=== PATIENT | male | born 1945 | race African-American/Black ===

== ENCOUNTER 2018-10-23 04:07 | Inpatient (IN) | payer MEDICARE, BC ==
[~2018-10-23] VITALS: Ht 188 cm; Wt 116.1 kg
[~2018-10-23 04:07] MED LIST: ALBU2.5V13 IH; ATOR20TA65 PO; CARV25TA47 PO; CLOP75TA33 PO; EPOETIN ALFA; FERR-63 PO; FURO40TA5 PO; HYDR-4135 PO; HYDR-523 PO; INSU3INS6 SQ; ISOS60TA4 PO; OLOP30.5 NS; PANT40TA4 PO; PROCRIT IV; TAMS0.4C31 PO
[2018-10-23 07:01] LABS: CHLORIDE 103 mEq/L (98-107)
[2018-10-23 07:02] LABS: BASOPHILS % 0.3 % (0.0-2.0); EOSINOPHILS % 0.2 % (0.0-5.0); HEMATOCRIT. 26.9 % (42.0-52.0); HEMOGLOBIN. 8.4 g/dL (14.0-18.0); LYMPHOCYTES % 7.4 % (20.0-50.0); MEAN CORPUSCULAR HEMOGLOBIN 25.5 pg (28.0-32.0); MEAN CORPUSCULAR VOLUME 81.4 fL (80.0-94.0); MEAN PLATELET VOLUME 6.8 fl (7.4-10.4); MONOCYTES % 9.9 % (2.0-8.0); NEUTROPHILS % 82.2 % (40.0-76.0); PLATELET 148 x1000/uL (130-400); RED CELL DISTRIBUTION WIDTH 19.9 % (11.6-14.6)
[2018-10-23 07:03] LABS: INR 1.4; PROTHROMBIN TIME 14.4 sec (9.6-11.0)
[2018-10-23] MEDS ORDERED: SODIUM CHLORIDE 0.9% 1,000 ML IV ONE ×2 (07:30→10:30)
[2018-10-23] MEDS ORDERED: ONDANSETRON HCL 4MG/2ML INJ IV ONE (07:30)
[2018-10-23] MEDS ORDERED: MORPHINE SULFATE 4 MG/ML CPJ (NOT FOR IM USE) IV ONE (07:30)
[2018-10-23] MEDS ORDERED: NA PHOS,M-B/NA PHOS,DI-BA ENEMA 118ML PR ONE (10:15)
[2018-10-23 13:00] VITALS: BP 161/81
[2018-10-23] MEDS ORDERED: ACETAMINOPHEN 325MG TABLET PO PRN (13:00)
[2018-10-23] MEDS ORDERED: OMEPRAZOLE 20MG CAPSULE EXTENDED RELEASE PO SCH (14:00)
[2018-10-23] MEDS ORDERED: MORPHINE SULFATE 4 MG/ML CPJ (NOT FOR IM USE) IV PRN (15:00)
[2018-10-23] MEDS ORDERED: BISACODYL 10MG SUPP PR NR (15:00)
[2018-10-23 16:00] VITALS: BP 171/77
[2018-10-23 16:07] LABS: HEMATOCRIT 27.6 % (42.0-52.0); HEMOGLOBIN 8.7 g/dL (14.0-18.0)
[2018-10-23] MEDS: SODIUM CHLORIDE 0.9% 1,000 ML IV SCH (16:55)
[2018-10-23] MEDS ORDERED: DEXTROSE 50% WATER 50ML SYRINGE IV PRN (17:15)
[2018-10-23 18:00] VITALS: BP 102/56
[2018-10-23 18:03] VITALS: BP 102/55
[2018-10-23] MEDS: INSULIN LISPRO 100 UNITS/ML SUBCUT SCH ×2 (18:10→20:45)
[2018-10-23] MEDS: OMEPRAZOLE 20MG CAPSULE EXTENDED RELEASE PO SCH ×2 (18:28→21:33)
[2018-10-23] MEDS: BLOOD SUGAR DIAGNOSTIC STRIP TEST SCH ×2 (18:28→20:45)
[2018-10-23 18:36] LABS: TOTAL IRON BINDING CAPACITY 114 ug/dL (250-450)
[2018-10-23 19:18] VITALS: BP 102/56
[2018-10-23 20:00] VITALS: BP 105/44
[2018-10-23 20:15] LABS: CLARITY URINE CLEAR (CLEAR); COLOR URINE YELLOW (YELLOW); KETONES URINE NEGATIVE (NEGATIVE); LEUKOCYTE ESTERASE URINE 2+ (NEGATIVE); NITRITE URINE NEGATIVE (NEGATIVE); OCCULT BLOOD URINE NEGATIVE (NEGATIVE); PROTEIN URINE TRACE (NEGATIVE); SPECIFIC GRAVITY URINE 1.013 (1.005-1.030)
[2018-10-23 20:32] LABS: METHADONE URINE SCREEN NEGATIVE (NEGATIVE); OPIATES URINE SCREEN PRESUMTIVE POSITIVE (NEGATIVE)
[2018-10-23 20:33] LABS: *AMPHETAMINES SCREEN URINE NEGATIVE (NEGATIVE); *BARBITURATES SCREEN URINE NEGATIVE (NEGATIVE); *BENZODIAZEPINES SCREEN URINE NEGATIVE (NEGATIVE); *COCAINE SCREEN URINE NEGATIVE (NEGATIVE); CANNABINOID URINE SCREEN NEGATIVE (NEGATIVE); PHENCYCLIDINE URINE SCREEN NEGATIVE (NEGATIVE)
[2018-10-23] MEDS: CARVEDILOL 12.5MG TABLET PO SCH (20:45)
[2018-10-23] MEDS: HYDRALAZINE HCL 50MG TABLET PO SCH (20:45)
[2018-10-23] MEDS: ATORVASTATIN CALCIUM 20MG TABLET PO SCH (21:33)
[2018-10-24] VITALS (16 sets, daily range): BP systolic 95–176; BP diastolic 46–82
[2018-10-24 00:46] LABS: HEMATOCRIT 25.2 % (42.0-52.0)
[2018-10-24] MEDS: HYDROCODONE/ACETAMINOPHEN 5/325MG TABLET PO PRN (03:36)
[2018-10-24] MEDS: SODIUM CHLORIDE 0.9% 1,000 ML IV SCH ×2 (06:17→21:44)
[2018-10-24] MEDS: BLOOD SUGAR DIAGNOSTIC STRIP TEST SCH ×4 (06:23→21:29)
[2018-10-24] MEDS ORDERED: LIDOCAINE HCL 1% 20ML VIAL (Pyxis) INJ ONE (07:37)
[2018-10-24] MEDS ORDERED: SODIUM BICARBONATE 4% (2.4MEQ) 5ML VIAL IV ONE (07:37)
[2018-10-24 07:42] LABS: EOSINOPHILS % 0.2 % (0.0-5.0); HEMATOCRIT. 24.4 % (42.0-52.0); HEMOGLOBIN. 7.5 g/dL (14.0-18.0); LYMPHOCYTES % 7.4 % (20.0-50.0); MEAN CORPUSCULAR HEMOGLOBIN 25.4 pg (28.0-32.0); MEAN CORPUSCULAR VOLUME 82.5 fL (80.0-94.0); MEAN PLATELET VOLUME 6.8 fl (7.4-10.4); MONOCYTES % 9.9 % (2.0-8.0); NEUTROPHILS % 82.5 % (40.0-76.0); PLATELET 122 x1000/uL (130-400); RED BLOOD CELL COUNT 2.95 mill/uL (4.7-6.1); RED CELL DISTRIBUTION WIDTH 19.6 % (11.6-14.6)
[2018-10-24 07:45] LABS: INR 1.5; PROTHROMBIN TIME 14.9 sec (9.6-11.0)
[2018-10-24 08:02] LABS: PHOSPHORUS 6.5 mg/dL (2.5-4.9)
[2018-10-24] MEDS: INSULIN LISPRO 100 UNITS/ML SUBCUT SCH ×4 (08:10→21:43)
[2018-10-24] MEDS ORDERED: CEFAZOLIN 1000MG PREMIX 50 ML IV ONE ×2 (08:14→08:15)
[2018-10-24] MEDS ORDERED: FENTANYL CITRATE/PF 50MCG/ML 2ML VIAL ONE (08:14)
[2018-10-24] MEDS ORDERED: FENTANYL CITRATE/PF 50MCG/ML 2ML VIAL IV ONE (08:25)
[2018-10-24] MEDS ORDERED: BISACODYL 10MG SUPP PR PRN (09:00)
[2018-10-24] MEDS ORDERED: FAMOTIDINE 20MG/2ML VIAL IV SCH (09:00)
[2018-10-24] MEDS: TAMSULOSIN HCL 0.4MG SR CAPSULE PO SCH (09:31)
[2018-10-24] MEDS: CARVEDILOL 12.5MG TABLET PO SCH (09:32)
[2018-10-24] MEDS: HYDRALAZINE HCL 50MG TABLET PO SCH (09:32)
[2018-10-24] MEDS: OMEPRAZOLE 20MG CAPSULE EXTENDED RELEASE PO SCH ×2 (09:32→21:42)
[2018-10-24] MEDS: DOCUSATE SODIUM 250MG CAPSULE PO SCH (09:34)
[2018-10-24] MEDS ORDERED: CEFAZOLIN SODIUM 1000MG/VIAL IM ONE (16:15)
[2018-10-24] MEDS ORDERED: CEFAZOLIN 1000MG PREMIX 50 ML IV NR ×2 (16:15→17:30)
[2018-10-24 20:03] LABS: HEMOGLOBIN 8.3 g/dL (14.0-18.0)
[2018-10-24] MEDS: CARVEDILOL 3.125 MG TABLET PO SCH (20:19)
[2018-10-24 20:34] LABS: HEPATITIS B SURFACE AB 218.7 mIU/mL
[2018-10-24 20:45] LABS: HEPATITIS B SURFACE ANTIGEN NEGATIVE
[2018-10-24] MEDS: ATORVASTATIN CALCIUM 20MG TABLET PO SCH (21:42)
[2018-10-24] MEDS: EPOETIN ALFA 10000UNITS/ML VIAL SUBCUT SCH (21:43)
[2018-10-24] MEDS: MORPHINE SULFATE 2 MG/ML CPJ (NOT FOR IM USE) IV PRN (23:58)
[2018-10-25] VITALS: BP 110/56
[2018-10-25 00:01] LABS: HEMATOCRIT 24.4 % (42.0-52.0); HEMOGLOBIN 7.7 g/dL (14.0-18.0)
[2018-10-25] MEDS: HYDROCODONE/ACETAMINOPHEN 5/325MG TABLET PO PRN ×2 (03:40→09:34)
[2018-10-25 04:00] VITALS: BP 95/51
[2018-10-25] MEDS: BLOOD SUGAR DIAGNOSTIC STRIP TEST SCH ×4 (05:43→21:10)
[2018-10-25 07:27] LABS: BASOPHILS % 0.1 % (0.0-2.0); EOSINOPHILS % 0.4 % (0.0-5.0); HEMATOCRIT. 24.4 % (42.0-52.0); HEMOGLOBIN. 7.6 g/dL (14.0-18.0); LYMPHOCYTES % 9.1 % (20.0-50.0); MEAN CORPUSCULAR HEMOGLOBIN 25.6 pg (28.0-32.0); MEAN CORPUSCULAR VOLUME 82.2 fL (80.0-94.0); MEAN PLATELET VOLUME 7.1 fl (7.4-10.4); MONOCYTES % 12.2 % (2.0-8.0); NEUTROPHILS % 78.2 % (40.0-76.0); PLATELET 113 x1000/uL (130-400); RED BLOOD CELL COUNT 2.96 mill/uL (4.7-6.1); RED CELL DISTRIBUTION WIDTH 19.8 % (11.6-14.6)
[2018-10-25] MEDS: INSULIN LISPRO 100 UNITS/ML SUBCUT SCH ×4 (07:45→21:00)
[2018-10-25 08:00] VITALS: BP 103/60
[2018-10-25 08:00] LABS: PHOSPHORUS 4.8 mg/dL (2.5-4.9)
[2018-10-25 08:21] LABS: *CREATININE RANDOM URINE 64.4 mg/dL (Not Estab.); MICROALBUMIN RANDOM URINE 15.9 ug/mL (Not Estab.)
[2018-10-25] MEDS: CARVEDILOL 3.125 MG TABLET PO SCH (09:27)
[2018-10-25] MEDS: OMEPRAZOLE 20MG CAPSULE EXTENDED RELEASE PO SCH ×2 (09:27→21:09)
[2018-10-25] MEDS: DOCUSATE SODIUM 250MG CAPSULE PO SCH (09:28)
[2018-10-25] MEDS: TAMSULOSIN HCL 0.4MG SR CAPSULE PO SCH (09:28)
[2018-10-25 12:00] VITALS: BP 109/57
[2018-10-25] MEDS: DOCUSATE SODIUM SUGAR FREE 100MG/10ML UDC NG SCH ×2 (12:00→21:09)
[2018-10-25] MEDS ORDERED: BISACODYL 10MG SUPP PR SCH (14:00)
[2018-10-25] MEDS: ONDANSETRON HCL 4MG/2ML INJ IV PRN ×2 (15:51→21:39)
[2018-10-25 16:00] VITALS: BP 133/66
[2018-10-25] MEDS: SODIUM CHLORIDE 0.9% 1,000 ML IV SCH (18:40)
[2018-10-25] MEDS ORDERED: NA PHOS,M-B/NA PHOS,DI-BA ENEMA 118ML PR PRN (19:45)
[2018-10-25 20:00] VITALS: BP 126/93
[2018-10-25] MEDS: MORPHINE SULFATE 2 MG/ML CPJ (NOT FOR IM USE) IV PRN (20:01)
[2018-10-25] MEDS: ATORVASTATIN CALCIUM 20MG TABLET PO SCH (21:09)
[2018-10-26] VITALS: BP 93/62
[2018-10-26] MEDS: HYDROCODONE/ACETAMINOPHEN 5/325MG TABLET PO PRN (01:58)
[2018-10-26 04:00] VITALS: BP 95/68
[2018-10-26] MEDS: BLOOD SUGAR DIAGNOSTIC STRIP TEST SCH (06:12)
[2018-10-26] MEDS: INSULIN LISPRO 100 UNITS/ML SUBCUT SCH (06:12)
[2018-10-26 06:35] LABS: HEMATOCRIT. 24.5 % (42.0-52.0); HEMOGLOBIN. 7.6 g/dL (14.0-18.0); MEAN CORPUSCULAR HEMOGLOBIN 25.5 pg (28.0-32.0); MEAN PLATELET VOLUME 7.4 fl (7.4-10.4); PLATELET 98 x1000/uL (130-400); RED BLOOD CELL COUNT 2.99 mill/uL (4.7-6.1); RED CELL DISTRIBUTION WIDTH 19.7 % (11.6-14.6)
[2018-10-26 08:00] VITALS: BP 96/53
[2018-10-26] MEDS: ONDANSETRON HCL 4MG/2ML INJ IV PRN (08:42)
[2018-10-26] MEDS: MORPHINE SULFATE 2 MG/ML CPJ (NOT FOR IM USE) IV PRN (08:42)
[2018-10-26] MEDS: TAMSULOSIN HCL 0.4MG SR CAPSULE PO SCH (08:43)
[2018-10-26] MEDS: OMEPRAZOLE 20MG CAPSULE EXTENDED RELEASE PO SCH ×2 (08:44→21:16)
[2018-10-26] MEDS: DOCUSATE SODIUM SUGAR FREE 100MG/10ML UDC NG SCH ×2 (08:47→17:23)
[2018-10-26] MEDS ORDERED: BISACODYL 10MG SUPP PR SCH (09:00)
[2018-10-26 12:00] VITALS: BP 108/60
[2018-10-26 16:00] VITALS: BP_SYST 104; BP_SYST 112; BP_DIAS 54; BP_DIAS 57
[2018-10-26] MEDS: MEGESTROL ACETATE 400 MG/10 ML UDC PO SCH (18:47)
[2018-10-26 20:00] VITALS: BP 110/54
[2018-10-26 20:19] LABS: PLATELET ESTIMATE DECREASED
[2018-10-26] MEDS ORDERED: POLYETHYLENE GLYCOL 3350 (17GM) 1 DOSE PACK PO SCH (21:00)
[2018-10-26] MEDS: ATORVASTATIN CALCIUM 20MG TABLET PO SCH (21:16)
[2018-10-26] MEDS: EPOETIN ALFA 10000UNITS/ML VIAL SUBCUT SCH (21:31)
[2018-10-27 00:14] VITALS: BP 103/57
[2018-10-27 04:20] VITALS: BP 100/51
[2018-10-27 08:00] VITALS: BP 94/52
[2018-10-27] MEDS: DOCUSATE SODIUM SUGAR FREE 100MG/10ML UDC NG SCH ×2 (08:43→16:37)
[2018-10-27] MEDS: MEGESTROL ACETATE 400 MG/10 ML UDC PO SCH (08:44)
[2018-10-27] MEDS: OMEPRAZOLE 20MG CAPSULE EXTENDED RELEASE PO SCH ×2 (08:44→21:35)
[2018-10-27] MEDS: TAMSULOSIN HCL 0.4MG SR CAPSULE PO SCH (08:46)
[2018-10-27 09:30] LABS: BASOPHILS % 0.2 % (0.0-2.0); HEMATOCRIT. 24.4 % (42.0-52.0); HEMOGLOBIN. 7.7 g/dL (14.0-18.0); LYMPHOCYTES % 7.9 % (20.0-50.0); MEAN CORPUSCULAR HEMOGLOBIN 26.1 pg (28.0-32.0); MEAN CORPUSCULAR VOLUME 82.3 fL (80.0-94.0); MEAN PLATELET VOLUME 7.6 fl (7.4-10.4); MONOCYTES % 9.6 % (2.0-8.0); NEUTROPHILS % 82.3 % (40.0-76.0); PLATELET 99 x1000/uL (130-400); RED BLOOD CELL COUNT 2.96 mill/uL (4.7-6.1); RED CELL DISTRIBUTION WIDTH 19.8 % (11.6-14.6)
[2018-10-27 12:00] VITALS: BP 95/51
[2018-10-27 16:00] VITALS: BP 100/50
[2018-10-27 20:00] VITALS: BP 101/51
[2018-10-27] MEDS: ATORVASTATIN CALCIUM 20MG TABLET PO SCH (21:35)
[2018-10-28] VITALS: BP 120/54
[2018-10-28 04:00] VITALS: BP 95/56
[2018-10-28 06:25] LABS: BASOPHILS % 0.1 % (0.0-2.0); EOSINOPHILS % 0.1 % (0.0-5.0); HEMATOCRIT. 23.7 % (42.0-52.0); HEMOGLOBIN. 7.5 g/dL (14.0-18.0); LYMPHOCYTES % 7.5 % (20.0-50.0); MEAN CORPUSCULAR HEMOGLOBIN 25.9 pg (28.0-32.0); MEAN CORPUSCULAR VOLUME 82.4 fL (80.0-94.0); MEAN PLATELET VOLUME 7.5 fl (7.4-10.4); MONOCYTES % 10.6 % (2.0-8.0); NEUTROPHILS % 81.7 % (40.0-76.0); PLATELET 95 x1000/uL (130-400); RED BLOOD CELL COUNT 2.88 mill/uL (4.7-6.1); RED CELL DISTRIBUTION WIDTH 19.9 % (11.6-14.6)
[2018-10-28 07:19] LABS: PHOSPHORUS 5.8 mg/dL (2.5-4.9)
[2018-10-28 08:00] VITALS: BP 92/47
[2018-10-28] MEDS: MEGESTROL ACETATE 400 MG/10 ML UDC PO SCH (08:10)
[2018-10-28] MEDS: OMEPRAZOLE 20MG CAPSULE EXTENDED RELEASE PO SCH ×2 (08:11→22:42)
[2018-10-28] MEDS: DOCUSATE SODIUM SUGAR FREE 100MG/10ML UDC NG SCH ×2 (08:11→17:00)
[2018-10-28] MEDS: TAMSULOSIN HCL 0.4MG SR CAPSULE PO SCH (08:11)
[2018-10-28] MEDS: MORPHINE SULFATE 2 MG/ML CPJ (NOT FOR IM USE) IV PRN (11:21)
[2018-10-28 12:00] VITALS: BP 90/50
[2018-10-28 16:00] VITALS: BP 116/68
[2018-10-28] MEDS: ONDANSETRON HCL 4MG/2ML INJ IV PRN (18:44)
[2018-10-28 20:00] VITALS: BP 112/62
[2018-10-28] MEDS ORDERED: IPRATROPIUM/ALBUTEROL 0.5-3(2.5)MG/3ML NEB HHN PRN (20:45)
[2018-10-28] MEDS: TRAMADOL 50MG TABLET PO PRN (22:36)
[2018-10-28] MEDS: ATORVASTATIN CALCIUM 20MG TABLET PO SCH (22:41)
[2018-10-29 00:45] VITALS: BP 100/47
[2018-10-29] MEDS: SODIUM CHLORIDE 0.9% 1,000 ML IV SCH ×3 (01:11→16:03)
[2018-10-29] MEDS ORDERED: MORPHINE SULFATE 2 MG/ML CPJ (NOT FOR IM USE) IV PRN ×2 (02:00→18:00)
[2018-10-29 04:00] VITALS: BP 98/45
[2018-10-29 07:36] LABS: EOSINOPHILS % 0.1 % (0.0-5.0); HEMOGLOBIN. 7.2 g/dL (14.0-18.0); LYMPHOCYTES % 7.9 % (20.0-50.0); MEAN CORPUSCULAR HEMOGLOBIN 26.1 pg (28.0-32.0); MEAN PLATELET VOLUME 7.8 fl (7.4-10.4); MONOCYTES % 10.9 % (2.0-8.0); NEUTROPHILS % 81.1 % (40.0-76.0); PLATELET 91 x1000/uL (130-400); RED BLOOD CELL COUNT 2.77 mill/uL (4.7-6.1); RED CELL DISTRIBUTION WIDTH 19.6 % (11.6-14.6)
[2018-10-29 07:48] LABS: CHLORIDE 108 mEq/L (98-107)
[2018-10-29 07:55] LABS: AMYLASE 31 IU/L (25-115)
[2018-10-29 07:58] LABS: PHOSPHORUS 4.3 mg/dL (2.5-4.9)
[2018-10-29 08:00] VITALS: BP 119/75
[2018-10-29] MEDS: DOCUSATE SODIUM SUGAR FREE 100MG/10ML UDC NG SCH ×2 (08:35→17:00)
[2018-10-29] MEDS: ONDANSETRON HCL 4MG/2ML INJ IV PRN ×2 (08:35→13:33)
[2018-10-29] MEDS: TAMSULOSIN HCL 0.4MG SR CAPSULE PO SCH (08:36)
[2018-10-29] MEDS: MEGESTROL ACETATE 400 MG/10 ML UDC PO SCH (08:36)
[2018-10-29] MEDS: OMEPRAZOLE 20MG CAPSULE EXTENDED RELEASE PO SCH ×2 (08:36→20:57)
[2018-10-29 12:00] VITALS: BP 100/70
[2018-10-29] MEDS ORDERED: PIPERACILLIN/TAZ 3.375G PREMIX 50 ML IV SCH (12:45)
[2018-10-29] MEDS ORDERED: IPRATROPIUM/ALBUTEROL 0.5-3(2.5)MG/3ML NEB HHN PRN (13:15)
[2018-10-29 16:00] VITALS: BP 95/55
[2018-10-29] MEDS: PIPERACILLIN/TAZ 2.25G PREMIX 50 ML IV SCH ×2 (16:02→22:11)
[2018-10-29 20:00] VITALS: BP 110/50
[2018-10-29] MEDS: TRAMADOL 50MG TABLET PO PRN (20:28)
[2018-10-29] MEDS: ATORVASTATIN CALCIUM 20MG TABLET PO SCH (20:57)
[2018-10-29] MEDS: EPOETIN ALFA 10000UNITS/ML VIAL SUBCUT SCH (20:57)
[2018-10-30] VITALS: BP 112/59
[2018-10-30] MEDS: SODIUM CHLORIDE 0.9% 1,000 ML IV SCH ×2 (01:23→22:02)
[2018-10-30 04:00] VITALS: BP 99/55
[2018-10-30] MEDS: PIPERACILLIN/TAZ 2.25G PREMIX 50 ML IV SCH ×3 (06:11→21:49)
[2018-10-30 06:22] LABS: CHLORIDE 106 mEq/L (98-107)
[2018-10-30 06:23] LABS: HEMATOCRIT. 22.9 % (42.0-52.0); HEMOGLOBIN. 7.1 g/dL (14.0-18.0); MEAN CORPUSCULAR HEMOGLOBIN 26.1 pg (28.0-32.0); MEAN CORPUSCULAR VOLUME 83.7 fL (80.0-94.0); MEAN PLATELET VOLUME 8.1 fl (7.4-10.4); PLATELET 86 x1000/uL (130-400); RED BLOOD CELL COUNT 2.74 mill/uL (4.7-6.1)
[2018-10-30 06:34] LABS: PHOSPHORUS 5.1 mg/dL (2.5-4.9)
[2018-10-30] MEDS: OMEPRAZOLE 20MG CAPSULE EXTENDED RELEASE PO SCH ×2 (07:40→21:49)
[2018-10-30 08:00] VITALS: BP 101/52
[2018-10-30] MEDS: DOCUSATE SODIUM SUGAR FREE 100MG/10ML UDC NG SCH ×2 (09:00→17:00)
[2018-10-30] MEDS: MEGESTROL ACETATE 400 MG/10 ML UDC PO SCH (09:00)
[2018-10-30] MEDS: TAMSULOSIN HCL 0.4MG SR CAPSULE PO SCH (09:00)
[2018-10-30 10:55] LABS: PLATELET ESTIMATE DECREASED
[2018-10-30 12:00] VITALS: BP 91/56
[2018-10-30] MEDS ORDERED: MORPHINE SULFATE 2 MG/ML CPJ (NOT FOR IM USE) IV SCH (15:30)
[2018-10-30 18:52] LABS: AMYLASE 29 IU/L (25-115)
[2018-10-30 20:00] VITALS: BP 94/42
[2018-10-30] MEDS: CARVEDILOL 3.125 MG TABLET PO SCH (21:00)
[2018-10-30] MEDS: ATORVASTATIN CALCIUM 20MG TABLET PO SCH (21:49)
[2018-10-31] VITALS (61 sets, daily range): BP systolic 72–149; BP diastolic 26–96
[2018-10-31] MEDS: PIPERACILLIN/TAZ 2.25G PREMIX 50 ML IV SCH ×3 (05:17→23:02)
[2018-10-31] MEDS ORDERED: SODIUM BICARBONATE 7.5% 0.9 MEQ/ML 50ML SYR IV ONE (07:33)
[2018-10-31] MEDS ORDERED: CALCIUM CHLORIDE 1GM/10ML SYR IV ONE (07:33)
[2018-10-31] MEDS ORDERED: EPINEPHRINE 0.1MG/ML (1:10,000) 10ML SYR ONE (07:33)
[2018-10-31 07:55] LABS: HEMATOCRIT. 24.2 % (42.0-52.0); HEMOGLOBIN. 7.4 g/dL (14.0-18.0); MEAN CORPUSCULAR HEMOGLOBIN 25.5 pg (28.0-32.0); MEAN CORPUSCULAR VOLUME 83.4 fL (80.0-94.0); MEAN PLATELET VOLUME 7.8 fl (7.4-10.4); PLATELET 82 x1000/uL (130-400); RED CELL DISTRIBUTION WIDTH 19.5 % (11.6-14.6)
[2018-10-31 08:04] LABS: CHLORIDE 107 mEq/L (98-107)
[2018-10-31 08:16] LABS: PHOSPHORUS 4.6 mg/dL (2.5-4.9)
[2018-10-31] MEDS: PROPOFOL 10MG/ML 100ML 100 ML IV PRN ×3 (08:36→21:59)
[2018-10-31 08:56] LABS: BG BASE EXCESS -4.8 mmol/L (-2.0-2.0); BG CARBOXYHEMOGLOBIN 0.9 % (0.5-1.5); BG DEOXYHEMOGLOBIN 1.1 % (0.0-5.0); BG FRACTION INSPIRED OXYGEN 100; BG HCO3 ACT 21.2 mmol/L (22.0-26.0); BG METHEMOGLOBIN 0.2 % (0.0-1.5); BG OXYGEN SATURATION 98.9 % (92.0-98.5); BG OXYHEMOGLOBIN 97.8 % (94.0-97.0); BG PCO2 43.9 mmHg (35.0-45.0); BG PH 7.302 (7.350-7.450); BG PO2 156.2 mmHg (75.0-100.0); BG SAMPLE SITE RIGHT RADIAL; BG TIDAL VOLUME(mL) 500 mL; BG TOTAL HEMOGLOBIN 7.4 g/dL (12.0-18.0); BG VENT MODE VENT - A/C; BG VENT RATE 16 set
[2018-10-31] MEDS: MEGESTROL ACETATE 400 MG/10 ML UDC PO SCH (09:00)
[2018-10-31] MEDS: CARVEDILOL 3.125 MG TABLET PO SCH (09:00)
[2018-10-31] MEDS: DOCUSATE SODIUM SUGAR FREE 100MG/10ML UDC NG SCH ×2 (09:00→16:18)
[2018-10-31] MEDS ORDERED: IPRATROPIUM/ALBUTEROL 0.5-3(2.5)MG/3ML NEB HHN PRN (09:30)
[2018-10-31] MEDS ORDERED: NOREPINEPHRINE 16MG in DEXT 5% WATER 250ML (QUADRUPLE CONC) IV PRN (10:00)
[2018-10-31] MEDS ORDERED: NOREPINEPHRINE 32 MG in DEXT 5% WATER 468 ML IV PRN (10:00)
[2018-10-31 10:09] LABS: PLATELET ESTIMATE DECREASED
[2018-10-31] MEDS: TAMSULOSIN HCL 0.4MG SR CAPSULE PO SCH (10:42)
[2018-10-31] MEDS: FAMOTIDINE 20MG/2ML VIAL IV SCH (10:51)
[2018-10-31 11:37] LABS: INR 1.6
[2018-10-31] MEDS: IPRATROPIUM/ALBUTEROL 0.5-3(2.5)MG/3ML NEB HHN SCH ×3 (12:02→20:15)
[2018-10-31] MEDS: SODIUM CHLORIDE 0.9% 1,000 ML IV SCH (18:19)
[2018-10-31] MEDS: ATORVASTATIN CALCIUM 20MG TABLET PO SCH (21:00)
[2018-11-01] VITALS (81 sets, daily range): BP systolic 35–156; BP diastolic 22–66
[2018-11-01] MEDS: IPRATROPIUM/ALBUTEROL 0.5-3(2.5)MG/3ML NEB HHN SCH ×3 (00:27→08:57)
[2018-11-01] MEDS: PROPOFOL 10MG/ML 100ML 100 ML IV PRN ×4 (02:20→17:42)
[2018-11-01 05:18] LABS: HEMATOCRIT. 24.2 % (42.0-52.0); HEMOGLOBIN. 7.5 g/dL (14.0-18.0); MEAN CORPUSCULAR HEMOGLOBIN 25.8 pg (28.0-32.0); MEAN CORPUSCULAR VOLUME 83.1 fL (80.0-94.0); MEAN PLATELET VOLUME 8.2 fl (7.4-10.4); PLATELET 101 x1000/uL (130-400); RED BLOOD CELL COUNT 2.91 mill/uL (4.7-6.1); RED CELL DISTRIBUTION WIDTH 19.3 % (11.6-14.6)
[2018-11-01 05:25] LABS: CHLORIDE 105 mEq/L (98-107)
[2018-11-01 05:34] LABS: PHOSPHORUS 4.8 mg/dL (2.5-4.9)
[2018-11-01] MEDS: PIPERACILLIN/TAZ 2.25G PREMIX 50 ML IV SCH ×3 (05:37→21:00)
[2018-11-01 07:42] LABS: BG BASE EXCESS -1.8 mmol/L (-2.0-2.0); BG CARBOXYHEMOGLOBIN 0.4 % (0.5-1.5); BG DEOXYHEMOGLOBIN 4.3 % (0.0-5.0); BG HCO3 ACT 21.9 mmol/L (22.0-26.0); BG METHEMOGLOBIN 0.2 % (0.0-1.5); BG OXYGEN SATURATION 95.7 % (92.0-98.5); BG OXYHEMOGLOBIN 95.1 % (94.0-97.0); BG PCO2 32.4 mmHg (35.0-45.0); BG PH 7.448 (7.350-7.450); BG PO2 77.3 mmHg (75.0-100.0); BG SAMPLE SITE RIGHT BRACHIAL; BG TIDAL VOLUME(mL) 500 mL; BG TOTAL HEMOGLOBIN 7.2 g/dL (12.0-18.0); BG VENT MODE VENT - A/C; BG VENT RATE 16 set
[2018-11-01] MEDS: SODIUM CHLORIDE 0.9% 1,000 ML IV SCH (08:20)
[2018-11-01] MEDS: MEGESTROL ACETATE 400 MG/10 ML UDC PO SCH (08:22)
[2018-11-01] MEDS: DOCUSATE SODIUM SUGAR FREE 100MG/10ML UDC NG SCH ×2 (08:23→17:18)
[2018-11-01] MEDS: FAMOTIDINE 20MG/2ML VIAL IV SCH (08:25)
[2018-11-01] MEDS: TAMSULOSIN HCL 0.4MG SR CAPSULE PO SCH (08:25)
[2018-11-01 08:28] LABS: PLATELET ESTIMATE SLIGHTLY DECREASED
[2018-11-01] MEDS ORDERED: NOREPINEPHRINE 16 MG in DEXT 5% WATER 234 ML IV PRN (10:30)
[2018-11-01] MEDS: IPRATROPIUM BROMIDE (0.02%) 0.5MG/2.5ML NEB HHN SCH ×2 (13:08→20:40)
[2018-11-01] MEDS ORDERED: HEPARIN SODIUM 1,000 UNIT/1ML VIAL IV ONE (14:00)
[2018-11-01] MEDS: PHENYLEPHRINE 40 MG in DEXT 5% WATER 246 ML IV PRN ×2 (14:20→19:57)
[2018-11-01] MEDS: ATORVASTATIN CALCIUM 20MG TABLET PO SCH (20:59)
[2018-11-02] VITALS (104 sets, daily range): BP systolic 60–128; BP diastolic 20–70
[2018-11-02] MEDS: PROPOFOL 10MG/ML 100ML 100 ML IV PRN ×4 (00:17→21:36)
[2018-11-02] MEDS: PHENYLEPHRINE 40 MG in DEXT 5% WATER 246 ML IV PRN ×6 (00:59→21:37)
[2018-11-02] MEDS: IPRATROPIUM BROMIDE (0.02%) 0.5MG/2.5ML NEB HHN SCH ×4 (02:06→20:01)
[2018-11-02 05:08] LABS: HEMATOCRIT. 22.9 % (42.0-52.0); HEMOGLOBIN. 7.3 g/dL (14.0-18.0); MEAN CORPUSCULAR HEMOGLOBIN 25.8 pg (28.0-32.0); MEAN CORPUSCULAR VOLUME 81.4 fL (80.0-94.0); MEAN PLATELET VOLUME 7.8 fl (7.4-10.4); PLATELET 85 x1000/uL (130-400); RED BLOOD CELL COUNT 2.82 mill/uL (4.7-6.1); RED CELL DISTRIBUTION WIDTH 19.5 % (11.6-14.6)
[2018-11-02 05:21] LABS: PHOSPHORUS 4.1 mg/dL (2.5-4.9)
[2018-11-02] MEDS: PIPERACILLIN/TAZ 2.25G PREMIX 50 ML IV SCH ×3 (05:39→21:36)
[2018-11-02 07:38] LABS: PLATELET ESTIMATE DECREASED
[2018-11-02] MEDS: FAMOTIDINE 20MG/2ML VIAL IV SCH (09:13)
[2018-11-02] MEDS: DOCUSATE SODIUM SUGAR FREE 100MG/10ML UDC NG SCH ×2 (09:13→17:39)
[2018-11-02] MEDS: MEGESTROL ACETATE 400 MG/10 ML UDC PO SCH (09:13)
[2018-11-02] MEDS: TAMSULOSIN HCL 0.4MG SR CAPSULE PO SCH (09:14)
[2018-11-02 09:39] LABS: BG BASE EXCESS -2.8 mmol/L (-2.0-2.0); BG DEOXYHEMOGLOBIN 1.4 % (0.0-5.0); BG FRACTION INSPIRED OXYGEN 50; BG HCO3 ACT 20.8 mmol/L (22.0-26.0); BG METHEMOGLOBIN 0.3 % (0.0-1.5); BG OXYGEN SATURATION 98.6 % (92.0-98.5); BG OXYHEMOGLOBIN 97.3 % (94.0-97.0); BG PH 7.444 (7.350-7.450); BG SAMPLE SITE LEFT BRACHIAL; BG TIDAL VOLUME(mL) 500 mL; BG TOTAL HEMOGLOBIN 7.9 g/dL (12.0-18.0); BG VENT MODE VENT - A/C; BG VENT RATE 16 set
[2018-11-02] MEDS: SODIUM CHLORIDE 0.9% 1,000 ML IV SCH (10:00)
[2018-11-02] MEDS ORDERED: PROPOFOL 10MG/ML 100ML 100 ML IV PRN (15:15)
[2018-11-02] MEDS: ATORVASTATIN CALCIUM 20MG TABLET PO SCH (21:36)
[2018-11-03] VITALS (54 sets, daily range): BP systolic 66–123; BP diastolic 36–62
[2018-11-03] MEDS: PHENYLEPHRINE 40 MG in DEXT 5% WATER 246 ML IV PRN ×3 (00:25→08:45)
[2018-11-03] MEDS: IPRATROPIUM BROMIDE (0.02%) 0.5MG/2.5ML NEB HHN SCH ×4 (02:30→13:51)
[2018-11-03] MEDS: PROPOFOL 10MG/ML 100ML 100 ML IV PRN (02:42)
[2018-11-03 05:44] LABS: HEMATOCRIT. 21.9 % (42.0-52.0); MEAN CORPUSCULAR HEMOGLOBIN 25.8 pg (28.0-32.0); MEAN CORPUSCULAR VOLUME 81.6 fL (80.0-94.0); MEAN PLATELET VOLUME 8.7 fl (7.4-10.4); PLATELET 74 x1000/uL (130-400); RED BLOOD CELL COUNT 2.69 mill/uL (4.7-6.1); RED CELL DISTRIBUTION WIDTH 18.7 % (11.6-14.6)
[2018-11-03] MEDS: PIPERACILLIN/TAZ 2.25G PREMIX 50 ML IV SCH ×2 (05:49→13:27)
[2018-11-03 06:14] LABS: HEMOGLOBIN. 6.9 g/dL (14.0-18.0)
[2018-11-03 06:45] LABS: CHLORIDE 100 mEq/L (98-107)
[2018-11-03 07:00] LABS: PHOSPHORUS 4.1 mg/dL (2.5-4.9)
[2018-11-03 08:02] LABS: PLATELET ESTIMATE DECREASED
[2018-11-03] MEDS: FAMOTIDINE 20MG/2ML VIAL IV SCH (09:00)
[2018-11-03] MEDS: TAMSULOSIN HCL 0.4MG SR CAPSULE PO SCH (09:00)
[2018-11-03] MEDS: MEGESTROL ACETATE 400 MG/10 ML UDC PO SCH (09:00)
[2018-11-03] MEDS: DOCUSATE SODIUM SUGAR FREE 100MG/10ML UDC NG SCH ×2 (09:00→17:00)
[2018-11-03 09:34] LABS: BG BASE EXCESS -1.3 mmol/L (-2.0-2.0); BG CARBOXYHEMOGLOBIN 0.9 % (0.5-1.5); BG DEOXYHEMOGLOBIN 2.2 % (0.0-5.0); BG FRACTION INSPIRED OXYGEN 50; BG HCO3 ACT 22.4 mmol/L (22.0-26.0); BG METHEMOGLOBIN 0.2 % (0.0-1.5); BG OXYGEN SATURATION 97.8 % (92.0-98.5); BG OXYHEMOGLOBIN 96.7 % (94.0-97.0); BG PCO2 32.6 mmHg (35.0-45.0); BG PH 7.455 (7.350-7.450); BG SAMPLE SITE RIGHT RADIAL; BG TIDAL VOLUME(mL) 500 mL; BG TOTAL HEMOGLOBIN 6.9 g/dL (12.0-18.0); BG VENT MODE VENT - A/C; BG VENT RATE 16 set
[2018-11-03] MEDS: SODIUM CHLORIDE 0.9% 1,000 ML IV SCH (10:00)
[2018-11-03] MEDS ORDERED: MORPHINE SULFATE 250 MG in DEXT 5% WATER 240 ML IV PRN (12:30)
[2018-11-03] MEDS ORDERED: HEPARIN SODIUM 1,000 UNIT/1ML VIAL IV NR (12:45)
[2018-11-03] MEDS ORDERED: MORPHINE SULFATE 250 MG in SODIUM CHLORIDE 0.9% 240 ML IV PRN (13:00)
== END 2018-11-03 20:16 | disposition expired | DRG 673 ==
LOC: ER 04:07 → 7WST 11:07 → EDBEDREQ 11:16 → ENRESERV 11:32 → MICUSO 10-31 07:53
PROVIDERS: ADMIT Internal Medicine; ATTEND Internal Medicine
PROC: 0JH63XZ Insertion of Tunneled Vascular Access Device into Chest Subcutaneous Tissue and Fascia, Percutaneous Approach (ICD-10-PCS; 2018-10-24)
PROC: 02HV33Z Insertion of Infusion Device into Superior Vena Cava, Percutaneous Approach (ICD-10-PCS; 2018-10-24)
PROC: B5181ZA Fluoroscopy of Superior Vena Cava using Low Osmolar Contrast, Guidance (ICD-10-PCS; 2018-10-24)
PROC: B548ZZA Ultrasonography of Superior Vena Cava, Guidance (ICD-10-PCS; 2018-10-24)
PROC: 5A1D70Z Performance of Urinary Filtration, Intermittent, Less than 6 Hours Per Day (ICD-10-PCS; 2018-10-24)
PROC: 5A1D70Z Performance of Urinary Filtration, Intermittent, Less than 6 Hours Per Day (ICD-10-PCS; 2018-10-25)
PROC: 5A1D70Z Performance of Urinary Filtration, Intermittent, Less than 6 Hours Per Day (ICD-10-PCS; 2018-10-28)
PROC: 5A1D70Z Performance of Urinary Filtration, Intermittent, Less than 6 Hours Per Day (ICD-10-PCS; 2018-10-30)
PROC: 5A1945Z Respiratory Ventilation, 24-96 Consecutive Hours (ICD-10-PCS; principal; 2018-10-31)
PROC: 02HV33Z Insertion of Infusion Device into Superior Vena Cava, Percutaneous Approach (ICD-10-PCS; 2018-10-31)
PROC: B548ZZA Ultrasonography of Superior Vena Cava, Guidance (ICD-10-PCS; 2018-10-31)
PROC: 0BH17EZ Insertion of Endotracheal Airway into Trachea, Via Natural or Artificial Opening (ICD-10-PCS; 2018-10-31)
PROC: 5A1D70Z Performance of Urinary Filtration, Intermittent, Less than 6 Hours Per Day (ICD-10-PCS; 2018-11-01)
PROC: 30233N1 Transfusion of Nonautologous Red Blood Cells into Peripheral Vein, Percutaneous Approach (ICD-10-PCS; 2018-11-02)
DX: N17.9 Acute kidney failure, unspecified (principal); J96.00 Acute respiratory failure, unspecified whether with hypoxia or hypercapnia; E43 Unspecified severe protein-calorie malnutrition; I50.23 Acute on chronic systolic (congestive) heart failure; J18.9 Pneumonia, unspecified organism; G82.50 Quadriplegia, unspecified; K72.00 Acute and subacute hepatic failure without coma; R65.21 Severe sepsis with septic shock; A41.9 Sepsis, unspecified organism; I13.2 Hypertensive heart and chronic kidney disease with heart failure and with stage 5 chronic kidney disease, or end stage renal disease; C90.00 Multiple myeloma not having achieved remission; D68.9 Coagulation defect, unspecified; G62.81 Critical illness polyneuropathy; I48.1 Persistent atrial fibrillation; I48.92 Unspecified atrial flutter; M47.12 Other spondylosis with myelopathy, cervical region; R18.8 Other ascites; N18.6 End stage renal disease; N18.4 Chronic kidney disease, stage 4 (severe); Z66 Do not resuscitate; D63.8 Anemia in other chronic diseases classified elsewhere; D69.6 Thrombocytopenia, unspecified; E11.22 Type 2 diabetes mellitus with diabetic chronic kidney disease; E11.42 Type 2 diabetes mellitus with diabetic polyneuropathy; E78.00 Pure hypercholesterolemia, unspecified; E86.0 Dehydration; E78.5 Hyperlipidemia, unspecified; E83.39 Other disorders of phosphorus metabolism; F17.210 Nicotine dependence, cigarettes, uncomplicated; G47.33 Obstructive sleep apnea (adult) (pediatric); G89.29 Other chronic pain; I08.1 Rheumatic disorders of both mitral and tricuspid valves; I25.10 Atherosclerotic heart disease of native coronary artery without angina pectoris; I25.5 Ischemic cardiomyopathy; I27.20 Pulmonary hypertension, unspecified; I46.9 Cardiac arrest, cause unspecified; I48.0 Paroxysmal atrial fibrillation; I48.2 Chronic atrial fibrillation; K21.9 Gastro-esophageal reflux disease without esophagitis; K59.00 Constipation, unspecified; K82.8 Other specified diseases of gallbladder; M10.9 Gout, unspecified; M47.816 Spondylosis without myelopathy or radiculopathy, lumbar region; M48.02 Spinal stenosis, cervical region; M48.061 Spinal stenosis, lumbar region without neurogenic claudication; N40.0 Benign prostatic hyperplasia without lower urinary tract symptoms; R26.9 Unspecified abnormalities of gait and mobility; R13.10 Dysphagia, unspecified; R62.7 Adult failure to thrive; Z51.5 Encounter for palliative care; Z68.34 Body mass index [BMI] 34.0-34.9, adult; Z82.49 Family history of ischemic heart disease and other diseases of the circulatory system; Z83.3 Family history of diabetes mellitus; Z99.2 Dependence on renal dialysis; Z95.5 Presence of coronary angioplasty implant and graft
CPT/HCPCS: 31500; 36415; 36569; 36600; 71045; 72141; 74176; 76700; 76937; 77001; 80048; 80076; 80305; 82043; 82150; 82248; 82270; 82375; 82570; 82728; 82805; 82962; 83036; 83540; 83550; 83615; 83735; 84100; 84134; 84300; 84478; 84484; 84550; 85014; 85018; 86705; 86706; 86803; 86850; 86900; 86920; 87070; 87340; 92523; 92610; 93005; 93306; 93970; 94002; 94003; 94640; 96374; 96375; 97110; 97162; 97166; 97530; 99152; 99153; 99285; A6261; C1725; C1750; C1769; J0690; J0885; J1642; J1644; J1815; J2270; J2370; J2405; J2543; J2704; J3010; J3490; J7030; J7040; J7050; J7060; J7620; L0172; P9016; A4315; G0500